=== PATIENT | female | born 1950 | race Caucasian/White ===

== ENCOUNTER 2021-04-28 08:00 | Day surgery (SDC) | payer MEDICARE ==
[~2021-04-28 08:00] MED LIST: Midazolam 1 MG/ML 2 ML SDV ONE; Propofol 200 MG/20 ML SDV ONE; fentaNYL 100 MCG/2 ML SDV ONE
[2021-04-28] MEDS ORDERED: Sodium Chloride 0.9% 1,000 ML IV SCH (08:30)
[2021-04-28] MEDS ORDERED: Ondansetron 4 MG/2 ML SDV ONE (08:59)
[2021-04-28] MEDS ORDERED: Dexamethasone 4 MG/ML SDV ONE (08:59)
== END 2021-04-28 09:45 | disposition home or self-care (01) ==
LOC: JP.SDS 08:00
PROVIDERS: ATTEND Surgery
DX: Z12.11 Encounter for screening for malignant neoplasm of colon (principal); K62.89 Other specified diseases of anus and rectum; I48.91 Unspecified atrial fibrillation; Z80.0 Family history of malignant neoplasm of digestive organs
CPT/HCPCS: J1100; J2250; J2405; J2704; J3010; J7030

== ENCOUNTER 2023-02-11 09:03 | Emergency (ER) | payer MEDICARE | END 2023-02-11 11:01 | disposition home or self-care (01) | LOC: JP.ED 09:03 | DX: K08.89 Other specified disorders of teeth and supporting structures (principal); E78.00 Pure hypercholesterolemia, unspecified; I48.91 Unspecified atrial fibrillation; Z79.82 Long term (current) use of aspirin; Z79.899 Other long term (current) drug therapy | CPT/HCPCS: 99282 ==